=== PATIENT | female | born 1940 | race Caucasian/White ===

== ENCOUNTER → 2016-10-18 | Outpatient (CLI) | payer MEDICARE, OTHER ==
[~2016-10-18] MED LIST: ASCO500T20 PO; ASPI-586 PO; CALC600T12 PO; CHOL100045 PO; CIPR500T4 PO; INDA1.25 PO; LSNP10T PO; MAGN400T26 PO; MULT-116 PO; OMEG1CAP58 PO; OMEP20CA12 PO; OMG1KC PO; POTA10CA43 PO; SIMV40TA2 PO; [UNRECOGNIZED DRUG - CODE] PO
[2016-10-18 08:27] LABS: PLATELET COUNT 284 10^3uL (150-450); WHITE BLOOD COUNT 6.22 10^3uL (4.0-11.0)
[2016-10-18 08:30] LABS: MEAN CORPUSCULAR HEMOGLOBIN 33.8 PG (26.0-34.0); MEAN CORPUSCULAR VOLUME 102 FL (80-100)
[2016-10-18 08:38] LABS: BAND NEUTROPHILS % 0 % (0-6); EOSINOPHILS % 5 % (0-4); LYMPHOCYTES # 1.8 #; MONOCYTES # 0.2 #; MONOCYTES % 4 % (3-11); RBC MORPH NORMAL (NORMAL); SEGMENTED NEUTROPHILS % 62 % (51-67); TOTAL CELLS COUNTED 100
== END ==
LOC: LAB 08:04
PROVIDERS: ATTEND Internal Medicine Hematology & Oncology
DX: D53.9 Nutritional anemia, unspecified (principal)
CPT/HCPCS: 36415; 85025

== ENCOUNTER 2017-03-03 09:45 | Outpatient (RCR) | payer MEDICARE, OTHER ==
--- NOTE | 2016-12-23 13:27 | PT/OT/ST INITIAL EVALUATION ---
Department of Health and Human Services Form Approved [facility] Care Financing Administration OMB No. [id number] PLAN OF CARE/ASSESSMENT FOR OUTPATIENT REHABILITATION (Complete for Initial Claims Only) 1. LAST NAME Arnol FIRST NAME Guanaco Vasquez 2. ACC # [id number] 3. [facility] [id number] 4. PROVIDER NO. [id number] 5. TYPE: X PT 6. PRIOR HOSPITALIZATION None 7. PRIMARY DX Venous stasis Lower extremity ulcers 8. SECONDARY DX Left medial lower leg ulcers 9. ONSET DATE 09/2016 10. REFERRAL DATE 12/16/2016 11. SOC. DATE 12/20/2016 @ 10:30 a.m. 12. REFERRING PHYSICIAN Criss Gtz PA-C for Dr. Dempsey 13. CHARGES Evaluation Debridement 14. G CODES 15. PRIOR LEVEL OF FUNCTION; PERTINENT HISTORY (Prior therapy results, reason for referral.) S: The patient was referred to physical therapy by Criss Gtz PA-C for Dr. Dempsey with a diagnosis of left medial lower leg ulcers, orders are for wound care. The patient presents to therapy with left medial lower leg dressed with a dressing. You can note a mild amount of drainage through the bandage. The patient reports that she had scraped her lower leg in September when putting her socks on. She then put Band-Aids over the area which caused the wound to get bigger when she removed the Band-Aids and tore the skin. Occupational and social history: The patient is retired. She does enjoy swimming and doing water exercise routinely. Overall health rating: She rates her overall health as good. Current pain rating is 3/10. Past medical history includes bilateral total knee replacement, fractured right femur, hypertension, and arthritis. Medication includes: The patient currently is on an antibiotic to prevent infection. The patient's goal for therapy is to get the sores healed up. 16. INITIAL ASSESSMENT/SAFETY PRECAUTIONS/MEDICAL COMPLICATIONS (Level of function at start of care. Be specific, use objective measures, list problems.) O: APPEARANCE: The patient is a 76-year-old female who presents to physical therapy. She does demonstrate moderate swelling at lower extremities. Pitting edema noted at left lower leg above medial malleoli. Three open wounds are present at the medial aspect of the left lower leg. Moderate serous drainage is noted. Wound size: superior wound 0.8 cm x 0.7 cm, depth is superficial. Middle wound is 2.4 cm x 1.5 cm, depth superficial. Lower wound 2.0 cm x 1.8 cm, depth superficial. Less than 25% slough at wound beds of second and third wound. Debrided with forceps. Wounds were cleaned with Aloe [place] and 4x4s. Adaptic was placed over wound bed and triple layer compression dressing was then applied to left lower leg. 17. INITIAL POC: (Specify procedures, modalities, short and supervisor shipping room goals) A: The patient presents with 3 superficial venous stasis ulcers. PROGNOSIS: The patient is a good candidate for physical therapy for wound care. GOALS: 1. The patient to be compliant with wearing of dressings and elevating legs routinely in 1 week. 2. Decrease wound size by 50% in 6 weeks. 3. Decrease swelling at left lower leg in 4 weeks so there is no pitting occurring. 4. Complete wound healing of left lower extremity wounds in 12 weeks. PLAN: The patient will be seen 2 times a week over the next 12 weeks for wound care, dressing changes, debridement, and education. 18. FREQUENCY 19. DURATION 20. FUNCTIONAL LEVEL (End of claim period) 21. PHYSICIAN SIGNATURE ? ON FILE OR ENTER HERE: 22. DATE: I certify the need for these services furnished under this plan of care and if for partial hospitalization. 23. CERTIFICATION FROM THROUGH [facility]-700
== END 2017-03-07 09:58 | disposition home or self-care (01) ==
LOC: PT 09:45
PROVIDERS: ATTEND Family Medicine
DX: I87.2 Venous insufficiency (chronic) (peripheral) (principal); L98.491 Non-pressure chronic ulcer of skin of other sites limited to breakdown of skin
CPT/HCPCS: 97161; 97597; G8993; G8994